=== PATIENT | female | born 1960 | race African-American/Black ===

== ENCOUNTER 2017-12-06 00:51 | Emergency (ER) | END 2017-12-06 12:10 | disposition home or self-care (01) ==

== ENCOUNTER 2018-09-29 12:22 | Emergency (ER) | payer MEDICARE, OTHER ==
[~2018-09-29] VITALS: Ht 167.6 cm; Wt 85.0 kg
[~2018-09-29 12:22] MED LIST: BENZ-6 PO; CETI10CA PO; D-ME473S2 PO; HC30CR25 TOP; HYDR-4011 PO; HYDR-842 PO; HYDR25TA6; IBUP-1542 PO; KEN25L60 TOP; MOTRIN; NAPR-985 PO; NORVASC; PRED20TA PO; SOMA; TYLENOL #4; VIC; [UNRECOGNIZED DRUG - CODE]; [UNRECOGNIZED DRUG - REMARK]
[2018-09-29] MEDS ORDERED: HALOPERIDOL 5 MG INJ IM STA (12:26)
[2018-09-29] MEDS ORDERED: LORAZEPAM 2 MG INJ IM STA (12:26)
[2018-09-29 12:36] VITALS: Ht 167.6 cm; Wt 85.0 kg
[2018-09-29] MEDS ORDERED: DIPHENHYDRAMINE 50 MG INJ IM ONE (13:00)
[2018-09-29] MEDS ORDERED: OLANZAPINE 10 MG VIAL IM ONE (13:00)
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
[2018-09-29] MEDS ORDERED: BENA20TA4 PO (14:24)
[2018-09-29] MEDS ORDERED: HYDR25TA6 PO (14:24)
[2018-09-29] MEDS ORDERED: SOD CHLORIDE 0.9% 1,000 ML IV STA (17:00)
--- NOTE | 2018-09-29 20:45 | QN ---
Documentation Comment Observation Note: Indication: Alcohol intoxication Duration: Greater than 6 hours Family history: No diabetes The patient was observed with serial exams over the above timeframe. The patient continued to be well-appearing, and observation continued without complication. The patient had transiently low blood pressure response of the fluid likely secondary to dehydration and sedation medications. * At approximately 8:44 PM the patient is alert, conversive and oriented. The patient has keys to her home and states that she feels much better and would like to go home. Patient will have an ambulation and p.o. challenge. If the patient passes the patient can be safely discharged. A cab voucher will be given to the patient for discharge. She has keys in her possession to her home. The patient does not appear to be a danger to herself or others. * No signs of withdrawal. SUSHMA LOUISE MD Sep 29, 2018 20:45
[2018-09-29 21:44] VITALS: BP 113/82; PULSE 88; RESP 18
== END 2018-09-29 21:46 | disposition home or self-care (01) ==
LOC: E/R 12:22
DX: F29 Unspecified psychosis not due to a substance or known physiological condition (principal); I10 Essential (primary) hypertension; F10.920 Alcohol use, unspecified with intoxication, uncomplicated; R94.02 Abnormal brain scan
CPT/HCPCS: 70450; 71045; 80053; 80307; 81003; 85025; 85610; 85730; 96372; 99285; J1200; J1630; J2060; J7030; P9612

== ENCOUNTER 2018-11-20 05:15 | Emergency (ER) | payer MEDICARE, OTHER ==
[~2018-11-20] VITALS: Ht 167.6 cm; Wt 75.4 kg
[~2018-11-20 05:15] MED LIST changes: +BENA20TA4 PO; -BENZ-6 PO; -CETI10CA PO; -D-ME473S2 PO; -HC30CR25 TOP; -HYDR-4011 PO; -HYDR-842 PO; -HYDR25TA6; +HYDR25TA6 PO; -IBUP-1542 PO; -KEN25L60 TOP; -MOTRIN; -NAPR-985 PO; -NORVASC; -PRED20TA PO; -SOMA; -TYLENOL #4; -VIC; -[UNRECOGNIZED DRUG - CODE]; -[UNRECOGNIZED DRUG - REMARK]
[2018-11-20 05:19] VITALS: BP 117/76; PULSE 105; RESP 20; Ht 167.6 cm; Wt 75.4 kg
[2018-11-20] MEDS ORDERED: FAMOTIDINE 20 MG TAB PO ONE (06:30)
[2018-11-20] MEDS ORDERED: predniSONE 20 MG TAB PO ONE (06:30)
[2018-11-20] MEDS ORDERED: HYDR25TA6 PO (06:38)
[2018-11-20] MEDS ORDERED: HYDR12.58 PO (06:39)
[2018-11-20] MEDS ORDERED: PRED20TA PO (06:43)
[2018-11-20] MEDS ORDERED: BEN50 PO (06:43)
--- NOTE | 2018-11-20 06:54 | ERD ---
ER Documentation Chief Complaint Chief Complaint SWELLING TO LIPS AND CHEEKS X1 DAY, DENIES SOB OR PROBLEM SWALLOWING HPI 58-year-old female presents with complaint of swelling to lips and cheeks x1 day. States that she does not have any shortness of breath, wheezing, or stridor. Denies any difficulty swallowing. Does state that she is on an SHANNON inhibitor but has not had a reaction like this before. Denies taking any other blood pressure medications. Denies any headache, vomiting, difficulty breathing, respiratory distress, pallor, cyanosis, lightheadedness. History of hypertension. Denies any allergies. ROS All systems reviewed and are negative except as per history of present illness. Medications Home Meds Active Scripts Prednisone* (Prednisone*) 20 Mg Tab, 60 MG PO DAILY for 4 Days, TAB Prov:DANIEL CAT 11/20/18 Diphenhydramine Hcl* (Benadryl*) 50 Mg Cap, 50 MG PO Q6H PRN for ITCHING/RASH, #30 CAP Prov:DANIEL CAT 11/20/18 Reported Medications Hydrochlorothiazide* (Hydrochlorothiazide*) 25 Mg Tab, 25 MG PO DAILY, #30 TAB 09/29/18 Benazepril Hcl* (Benazepril Hcl*) 20 Mg Tablet, 20 MG PO DAILY, #30 TAB 09/29/18 Discontinued Scripts Hydrochlorothiazide* (Hydrochlorothiazide*) 12.5 Mg Tablet, 12.5 MG PO BID, #6 TAB Prov:DANIEL CAT 11/20/18 Allergies Allergies: Coded Allergies: No Known Allergies (Verified Allergy, Mild, 09/29/18) PMhx/Soc History of Surgery: Yes (James Knees Surg,Hysterectomy,) Anesthesia Reaction: No Hx Neurological Disorder: No Hx Respiratory Disorders: No Hx Cardiac Disorders: Yes (HTN) Hx Psychiatric Problems: No Hx Miscellaneous Medical Probl: No Hx Alcohol Use: Yes (smells of ETOH) Hx Substance Use: No Hx Tobacco Use: Yes (4 sticks/day) Smoking Status: Current every day smoker FmHx Family History: No diabetes, No coronary disease, No other Physical Exam Vitals Vital Signs Date Temp Pulse Resp B/P (MAP) Pulse Ox O2 O2 Flow FiO2 Time Delivery Rate 11/20/18 97.3 105 20 117/76 99 05:19 (90) Physical Exam Const: No acute distress Head: Atraumatic Eyes: Normal Conjunctiva ENT: Normal External Ears, Nose and Mouth. Airways patent and clear. There is no tongue edema or uvular edema noted. Possible mild edema of the lips but unable to compare to patient's baseline state as she does not have a picture of how she normally looks. Neck: Full range of motion. No meningismus. Resp: Clear to auscultation bilaterally Cardio: Regular rate and rhythm, no murmurs Abd: Soft, non tender, non distended. Normal bowel sounds Skin: No petechiae or rashes Back: No midline or flank tenderness Ext: No cyanosis, or edema Neur: Awake and alert Psych: Normal Mood and Affect Results 24 hrs Current Medications Medications Dose Sig/Luisito Start Time Status Last (Trade) Ordered Route PRN Stop Time Admin Dose Reason Admin Prednisone 60 mg ONCE ONCE 11/20/18 DC 11/20/18 (Prednisone) PO 06:30 06:27 11/20/18 06:31 Famotidine 40 mg ONCE ONCE 11/20/18 DC 11/20/18 (Pepcid) PO 06:30 06:27 11/20/18 06:31 Procedures/MDM MDM: Patient possibly has mild angioedema of the lips but it is impossible to know for certain given that patient does not have a picture of herself showing me her baseline state. However, patient is concerned that her lips and face did get swollen so I will treat her according to this. To note, patient is taking benazepril which can cause and you edema. I discussed with patient that since benazepril could be causing this and angioedema can become a serious condition that she would need to discontinue benazepril for 24 hours and see her primary care physician no later than tomorrow. I discussed with her the risks of going off the benazepril for too long and therefore the importance of seeing her primary care within 24 hours. Patient understood this and said she would be able to see her primary care physician within 24 hours. At this time I have low suspicion for respiratory distress, airway blockage, anaphylaxis, or any other emergent condition. Patient was given prednisone as well as Pepcid in the ER and discharged with prednisone and Benadryl. At this time, patient is stable for discharge and outpatient management. I have instructed the patient to follow-up with his/her primary care physician in 1-2 days. I have discussed with the patient the possibility of needing to see a specialist for further workup and imaging studies if symptoms persist. I have instructed the patient to p romptly return to the ER for any new or worsening symptoms including but not limited to increased pain, fever, nausea, vomiting, weakness or LOC. The patient and/or family expressed understanding of and agreement with this plan. All questions were answered. Home care instructions were provided. DISCLAIMER: Inadvertent spelling and grammatical errors are likely due to EHR/dictation software use and do not reflect on the overall quality of patient care. Also, please note that the electronic time recorded on this note does not necessarily reflect the actual time of the patient encounter. Departure Diagnosis: Primary Impression: Swelling Condition: Stable Patient Instructions: Angioedema Referrals: [facility] YOU HAVE RECEIVED A MEDICAL SCREENING EXAM AND THE RESULTS INDICATE THAT YOU DO NOT HAVE A CONDITION THAT REQUIRES URGENT TREATMENT IN THE EMERGENCY DEPARTMENT. FURTHER EVALUATION AND TREATMENT OF YOUR CONDITION CAN WAIT UNTIL YOU ARE SEEN IN YOUR DOCTORS OFFICE WITHIN THE NEXT 1-2 DAYS. IT IS YOUR RESPONSIBILITY TO MAKE AN APPOINTMENT FOR FOLOW-UP CARE. IF YOU HAVE A PRIMARY DOCTOR --you should call your primary doctor and schedule an appointment IF YOU DO NOT HAVE A PRIMARY DOCTOR YOU CAN CALL OUR PHYSICIAN REFERRAL HOTLINE AT IF YOU CAN NOT AFFORD TO SEE A PHYSICIAN YOU CAN CHOSE FROM THE FOLLOWING [facility] CLINICS [facility] [address] [facility]. [facility] [address] [facility] [facility] [address] [facility]. [facility] [address] [facility]. [facility] [address] [facility]. [facility]. [address] Additional Instructions: FOLLOW UP WITH YOUR PRIMARY CARE PHYSICIAN TOMORROW. This is especially important since we needed to change you off of your regular blood pressure medi cation due to possible dangerous side effect and put you on another blood pressure medication. Your doctor needs to make sure that the dose of the new medication you are on is correct. Return to this facility if you are not improving as expected. DANIEL CAT Nov 20, 2018 06:54
== END 2018-11-20 07:13 | disposition home or self-care (01) ==
LOC: FTE 05:15
DX: R22.0 Localized swelling, mass and lump, head (principal); I10 Essential (primary) hypertension; F17.210 Nicotine dependence, cigarettes, uncomplicated
CPT/HCPCS: 99283; J7512